=== PATIENT | female | born 1960 | race Caucasian/White ===

== ENCOUNTER → 2024-03-18 13:21 | Outpatient (REF) | payer BC, SELFPAY ==
[2024-03-18 17:02] LABS: ALT (SGPT) 26 U/L (0-35); AST (SGOT) 19 U/L (14-36); Alkaline Phosphatase 98 U/L (38-126); Blood Urea Nitrogen 22 mg/dl (7-17); Carbon Dioxide 20 mmol/L (22-30); Chloride 99 mmol/L (98-107); Glucose 95 mg/dl (70-99); Potassium 4.3 mmol/L (3.5-5.1); Sodium 135 mmol/L (135-145); Total Bilirubin 0.4 mg/dl (0.2-1.3); Total Protein 6.5 g/dl (6.3-8.2); eGFR > 60.00
== END ==
LOC: HWRAD 13:21
PROVIDERS: ATTENDING PHYSICIAN Nurse Practitioner
DX: N30.01 Acute cystitis with hematuria (principal); R10.32 Left lower quadrant pain
CPT/HCPCS: 36415; 74178; 80053; Q9967

== ENCOUNTER 2024-04-13 16:27 | Emergency (ER) | payer SELFPAY ==
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
[2024-04-13 16:43] VITALS: BP 132/101
[2024-04-13 19:11] VITALS: BP 129/82
[2024-04-13] MEDS: MOTRIN 600 MG PO (19:35)
== END 2024-04-13 19:40 | disposition home or self-care (01) ==
LOC: EMR 16:27
PROVIDERS: EMERGENCY PHYSICIAN Emergency Medicine; FAMILY PHYSICIAN Internal Medicine
DX: S63.91XA Sprain of unspecified part of right wrist and hand, initial encounter (principal); V09.9XXA Pedestrian injured in unspecified transport accident, initial encounter; Y92.481 Parking lot as the place of occurrence of the external cause
CPT/HCPCS: 99283; 73130

== ENCOUNTER → 2024-08-24 10:53 | Outpatient (REF) | payer BC, SELFPAY | LOC: RAD 10:53 | PROVIDERS: ATTENDING PHYSICIAN Nurse Practitioner | DX: M54.50 Low back pain, unspecified (principal) | CPT/HCPCS: 72100 ==

== ENCOUNTER → 2024-09-02 10:54 | Outpatient (REF) | payer BC, SELFPAY | LOC: RAD 10:54 | PROVIDERS: ATTENDING PHYSICIAN Nurse Practitioner | DX: M54.9 Dorsalgia, unspecified (principal) | CPT/HCPCS: 72050; 72072 ==

== ENCOUNTER 2024-10-12 06:17 | Day surgery (SDC) | payer BC, SELFPAY | END 2024-10-12 12:27 | disposition home or self-care (01) | LOC: GI 06:17 | PROVIDERS: ATTENDING PHYSICIAN Internal Medicine Gastroenterology | DX: Z12.11 Encounter for screening for malignant neoplasm of colon (principal); K64.8 Other hemorrhoids; D12.2 Benign neoplasm of ascending colon; Z86.0100 Personal history of colon polyps, unspecified | CPT/HCPCS: 45385; 88305 ==